=== PATIENT | female | born 1995 | race African-American/Black ===

== ENCOUNTER 2022-07-03 02:46 | Emergency (ER) | payer SELFPAY ==
[~2022-07-03] VITALS: Ht 167.6 cm; Wt 52.0 kg
[2022-07-03 02:50] VITALS: BP 124/88
[2022-07-03] MEDS ORDERED: HALOPERIDOL LACTATE 5MG/ML VIAL IM ONE (03:30)
[2022-07-03] MEDS ORDERED: LORAZEPAM 2MG/ML CPJ IM ONE (03:30)
== END 2022-07-03 04:29 | disposition left against medical advice (07) ==
LOC: ER 02:46 → EDBD 02:46 → ER 04:29
DX: R41.82 Altered mental status, unspecified (principal); Z53.21 Procedure and treatment not carried out due to patient leaving prior to being seen by health care provider
CPT/HCPCS: 99285